=== PATIENT | male | born 1960 | race Hispanic/Latino ===

== ENCOUNTER 2019-05-25 08:44 | Emergency (ER) | payer OTHER ==
[2019-05-25] MEDS ORDERED: Fluorescein Opthalmic Strip ONE (09:11)
== END 2019-05-25 10:10 | disposition home or self-care (01) ==
LOC: NAV ERS 08:44
DX: T15.01XA Foreign body in cornea, right eye, initial encounter (principal); F17.210 Nicotine dependence, cigarettes, uncomplicated
CPT/HCPCS: 65222